=== PATIENT | female | born 1980 | race Caucasian/White ===

== ENCOUNTER 2023-03-18 14:12 | Emergency (ER) | payer SELFPAY ==
[2023-03-18 14:37] VITALS: BP 131/73; PULSE 84; RESP 18; TEMP 98.4; BMI 29.9
[2023-03-18] MEDS ORDERED: ACETAMINOPHEN 500 MG TABLET (FP) PO ONE (14:46)
[2023-03-18] MEDS ORDERED: ACETAMINOPHEN 500 MG TABLET (FP) ONE (14:59)
== END 2023-03-18 16:30 | disposition home or self-care (01) ==
LOC: FER 14:12
DX: M25.572 Pain in left ankle and joints of left foot (principal); X50.1XXA Overexertion from prolonged static or awkward postures, initial encounter
CPT/HCPCS: 73610-TC-LT-FY; 73630-TC-LT; 99283-25